=== PATIENT | female | born 1990 | race Caucasian/White ===

== ENCOUNTER → 2021-10-11 04:30 | Observation (INO) ==
[2021-10-11 03:55] LABS: Basophils % 0.4 %; Eosinophils # 0.1 K/mcL (0.0-0.6); Eosinophils % 1.3 %; Hematocrit 34.2 % (35.3-44.9); Hemoglobin 11.3 g/dL (11.5-15.4); Immature Granulocytes % 0.5 % (0-4); Lymphocytes % 21.4 %; Mean Corpuscular Hemoglobin 28.9 pg (28.0-33.3); Mean Corpuscular Volume 87.5 fL (83.0-100.0); Mean Platelet Volume 10.8 fL (9.4-12.4); Monocytes # 0.6 K/mcL (0.0-1.3); Monocytes % 6.2 %; Neutrophils # 6.5 K/mcL (1.6-8.9); Platelet Count 201 K/mcL (140-400); Red Blood Count 3.91 M/mcL (3.82-4.97); Red Cell Distribution Width 12.6 % (11.5-14.5); Segmented Neutrophils % 70.2 %; White Blood Count 9.3 K/mcL (4.3-11.1)
[2021-10-11 04:01] LABS: Amphetamine Screen,Urine Negative ng/mL (Cutoff=1000); Barbiturate Screen,Urine Negative ng/mL (Cutoff=200); Benzodiazepines Screen,Urine Negative ng/mL (Cutoff=200); Cannabinoid Screen,Urine Negative ng/mL (Cutoff = 50); Cocaine Screen,Urine Negative ng/mL (Cutoff= 300); Creatinine,Urine 35 mg/dL; Opiate Screen,Urine Negative ng/mL (Cutoff=300); Phencyclidine Screen,Urine Negative ng/mL (Cutoff=25); Protein/Creatinine Ratio,Urine 0.14 mg/mg (0.00-0.20)
[2021-10-11 04:13] LABS: Alanine Aminotransferase 8 Units/L (7-52); Aspartate Amino Transferase 14 Units/L (13-39); BUN/Creatinine Ratio 9 (6-26); Blood Urea Nitrogen 4 mg/dL (6-20); Lactate Dehydrogenase 144 Units/L (140-271); Uric Acid 3.8 mg/dL (2.3-7.6); eGFR For African Americans > 60 (> 60); eGFR For Non-African Americans > 60 (> 60)
== END | disposition home or self-care (01) ==
LOC: 1NENULAB
PROVIDERS: ADMIT Advanced Practice Midwife; ATTEND Advanced Practice Midwife

== ENCOUNTER 2021-10-15 02:15 | Inpatient (IN) ==
[~2021-10-15 02:15] MED LIST: *HR* Nalbuphine 10 MG/ML AMPUL IV PRN; Famotidine 20 MG/2 ML VIAL IVP PRN; Metoclopramide 10 MG/2 ML VIAL IVP PRN; Naloxone 0.4 MG/ML INJ IVP PRN; Ondansetron 4 MG/2 ML VIAL IVP PRN; Ringers Solution, Lactated 1,000 ML IVC SCH
[2021-10-15] MEDS ORDERED: EPHEDrine 50 MG/ML VIAL IVP PRN (02:24)
[2021-10-15] MEDS ORDERED: Epidural Premix (fent/bupiv) 110 ML EP SCH (02:30)
[2021-10-15 02:37] LABS: Amphetamine Screen,Urine Negative ng/mL (Cutoff=1000); Barbiturate Screen,Urine Negative ng/mL (Cutoff=200); Basophils % 0.3 %; Benzodiazepines Screen,Urine Negative ng/mL (Cutoff=200); Cannabinoid Screen,Urine Negative ng/mL (Cutoff = 50); Cocaine Screen,Urine Negative ng/mL (Cutoff= 300); Eosinophils # 0.1 K/mcL (0.0-0.6); Eosinophils % 1.4 %; Hematocrit 33.6 % (35.3-44.9); Hemoglobin 11.3 g/dL (11.5-15.4); Immature Granulocytes % 0.7 % (0-4); Lymphocytes % 23.2 %; Mean Corpuscular HGB Conc 33.6 g/dL (31.6-35.5); Mean Corpuscular Volume 86.4 fL (83.0-100.0); Mean Platelet Volume 11.2 fL (9.4-12.4); Monocytes # 0.7 K/mcL (0.0-1.3); Monocytes % 8.4 %; Neutrophils # 5.7 K/mcL (1.6-8.9); Opiate Screen,Urine Negative ng/mL (Cutoff=300); Phencyclidine Screen,Urine Negative ng/mL (Cutoff=25); Platelet Count 200 K/mcL (140-400); Red Blood Count 3.89 M/mcL (3.82-4.97); Red Cell Distribution Width 12.4 % (11.5-14.5); White Blood Count 8.6 K/mcL (4.3-11.1)
[2021-10-15] MEDS ORDERED: Oxytocin 30 UNIT/503 ML BAG IVC ONE (06:06)
[2021-10-15] MEDS ORDERED: Ibuprofen 600 MG TABLET PO ONE (06:45)
[2021-10-15] MEDS ORDERED: Measles/Mumps/Rubella Vacc 0.5 ML VIAL SQ PRN (09:47)
[2021-10-15] MEDS ORDERED: Benzocaine/Menthol 56 GM AEROSOL SPRAY TP PRN (09:47)
[2021-10-15] MEDS ORDERED: Oxytocin 30 UNIT/503 ML BAG IVC SCH (09:47)
[2021-10-15] MEDS ORDERED: Ondansetron ODT 4 MG TAB.RAPDIS SL PRN (09:47)
[2021-10-15] MEDS ORDERED: *HR* OxyCODONE Immed Rel 5 MG TABLET PO PRN (09:47)
[2021-10-15] MEDS ORDERED: Lanolin 7 G OINT...G. TP PRN (09:47)
[2021-10-15] MEDS: Ibuprofen 600 MG TABLET PO SCH ×3 (10:55→18:59)
[2021-10-15] MEDS: Prenatal Vit/FA 1 EACH TABLET PO SCH (11:55)
[2021-10-15] MEDS: Acetaminophen 325 MG TABLET PO SCH ×3 (17:12→21:29)
[2021-10-16] MEDS: Acetaminophen 325 MG TABLET PO SCH ×2 (03:00→08:59)
[2021-10-16] MEDS: Ibuprofen 600 MG TABLET PO SCH ×2 (03:00→08:59)
[2021-10-16 06:01] VITALS: O2SAT 98
[2021-10-16 08:31] VITALS: BP 123/78; PULSE 85; TEMP 97.9
[2021-10-16] MEDS: Prenatal Vit/FA 1 EACH TABLET PO SCH (08:58)
== END 2021-10-16 12:45 | disposition home or self-care (01) | DRG 560 ==
LOC: 1NENULAB → 1NENUOBS 11:53
PROVIDERS: ADMIT Advanced Practice Midwife; ATTEND Advanced Practice Midwife